=== PATIENT | male | born 1940 | race Caucasian/White ===

== ENCOUNTER 2017-12-22 18:05 | Emergency (ER) | payer OTHER ==
[~2017-12-22] VITALS: Ht 175.3 cm; Wt 90.0 kg
[2017-12-22] MEDS ORDERED: SODIUM CHLORIDE 0.9% 1,000 ML IV ONE (18:25)
[2017-12-22] MEDS ORDERED: CEFTRIAXONE 1 G PREMIX 50 ML IV ONE (18:30)
[2017-12-22] MEDS ORDERED: SULFAMETHOXAZOLE/TRIMETHOPRIM 800/160MG TABLET PO ONE (18:30)
[2017-12-22 18:51] LABS: BASOPHILS % 0.1 % (0.0-2.0); EOSINOPHILS % 0.1 % (0.0-5.0); HEMATOCRIT. 44.3 % (42.0-52.0); HEMOGLOBIN. 14.8 g/dL (14.0-18.0); LYMPHOCYTES % 9.4 % (20.0-50.0); MEAN CORPUSCULAR HEMOGLOBIN 27.3 pg (28.0-32.0); MEAN CORPUSCULAR VOLUME 81.8 fL (80.0-94.0); MEAN PLATELET VOLUME 9.1 fl (7.4-10.4); MONOCYTES % 5.2 % (2.0-8.0); NEUTROPHILS % 85.2 % (40.0-76.0); PLATELET 144 x1000/uL (130-400); RED BLOOD CELL COUNT 5.42 mill/uL (4.7-6.1); RED CELL DISTRIBUTION WIDTH 13.9 % (11.6-14.6)
[2017-12-22 18:55] LABS: CHLORIDE 102 mEq/L (98-107)
[2017-12-22 18:57] LABS: INR 1.1; PARTIAL THROMBOPLASTIN TIME 25.2 sec (23.4-31.0); PROTHROMBIN TIME 11.4 sec (9.4-11.6)
[2017-12-22] MEDS ORDERED: CLONIDINE 0.2MG TABLET PO ONE (19:15)
[2017-12-22 19:42] LABS: AMMONIA 42 uMol/L (<32)
[2017-12-22] MEDS ORDERED: LACTULOSE 20G/30ML UDC PO ONE (20:15)
[2017-12-22] MEDS ORDERED: ASPIRIN 325MG EC TABLET PO ONE (20:15)
[2017-12-22] MEDS ORDERED: HYDRALAZINE 20MG/ML VIAL IV ONE ×2 (20:30→21:30)
[2017-12-22] MEDS ORDERED: CLONIDINE 0.1MG TABLET PO ONE (22:30)
[2017-12-23 00:22] VITALS: BP 125/75
== END 2017-12-23 00:26 | disposition short-term general hospital (02) ==
LOC: ER 18:31
DX: G93.40 Encephalopathy, unspecified (principal); I16.0 Hypertensive urgency; I10 Essential (primary) hypertension; L02.211 Cutaneous abscess of abdominal wall; E11.9 Type 2 diabetes mellitus without complications; I67.82 Cerebral ischemia; Z86.73 Personal history of transient ischemic attack (TIA), and cerebral infarction without residual deficits; Z91.018 Allergy to other foods; Z96.652 Presence of left artificial knee joint
CPT/HCPCS: 36415; 70450; 71045; 80053; 82140; 84484; 85025; 85610; 85730; 86850; 86900; 86901; 93005; 96365; 96366; 96375; 96376; 99291; J0360; J0696; J7030